=== PATIENT | male | born 1950 | race Caucasian/White ===

== ENCOUNTER 2018-12-14 16:44 | Inpatient (IN) | payer OTHER ==
[~2018-12-14] VITALS: Ht 177.8 cm; Wt 50.9 kg
--- NOTE | 2018-12-14 16:55 | NUR ---
68 Y/O MALE PRESENTS TO ED WITH NO COMPLAINTS. PER EMS REPORT CPS/EMS WAS CALLED TO THE APARTMENT. ON SCENE PT WAS HYPERTENSIVE 200s/100s. PT TAKES HTN MEDICATION, BUT DAUGHTER THINKS HE IS MISSING ONE. THEY MOVED HERE FROM [place] AND ARE TRYING TO FIND HOUSING. DAUGHTER IS POS, PER EMS. PT HAS NO COMPLAINTS AT THIS TIME. DAUGHTER WANTED PT TO COME TO ER TO GET CHECKED OUT. NO C/O N/V/D, TRAUMA, SYNCOPE, CP, SOB. PT PLACED ON ALL MONITORS.
--- NOTE | 2018-12-14 16:55 | NUR ---
COST ACCOUNTING CLERK: MIMI CERNA OF [facility] CALLED ABOUT THIS PT STATING THAT PT WAS LIVING IN UNSAFE CONDITIONS. PHONE NUMBER [phone] CELL [phone]. DAUGHTER SHASTA
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
[2018-12-14 17:50] LABS: BASOPHILS # (AUTO) 0.05 x10^3/uL (0-0.1); BASOPHILS % (AUTO) 1 % (0-1); EOSINOPHILS # (AUTO) 0.15 x10^3/uL (0-0.4); EOSINOPHILS % (AUTO) 2 % (1-7); LYMPHOCYTES # (AUTO) 1.34 x10^3/uL (1-3.4); LYMPHOCYTES % (AUTO) 19 % (22-44); MD NO; MEAN CORPUSCULAR HEMOGLOBIN 31.8 pg (27.5-34.5); MEAN CORPUSCULAR VOLUME 96.3 fL (81-97); MEAN PLATELET VOLUME 8.4 fL (7.4-10.4); MONOCYTES # (AUTO) 0.66 x10^3/uL (0.2-0.8); MONOCYTES % (AUTO) 9 % (2-9); NEUTROPHILS # (AUTO) 4.88 x10^3/uL (1.8-6.8); NEUTROPHILS % (AUTO) 69 % (42-75); PLATELET COUNT 265 x10^3/uL (130-400); RED BLOOD COUNT 4.37 x10^6/uL (4.38-5.82); RED CELL DISTRIBUTION WIDTH 16.1 % (9.4-14.8)
[2018-12-14 18:03] LABS: CHLORIDE 110 mmol/L (98-107)
[2018-12-14 18:10] LABS: ALBUMIN 3.8 g/dL (3.4-5.0); ANION GAP 7 mmol/L (5-15); CALCIUM 8.6 mg/dL (8.5-10.1); CREATININE 1.27 mg/dL (0.7-1.3)
--- NOTE | 2018-12-14 18:30 | NUR ---
LATE ENTRY FOR 1800 PT RESTING ON GURNEY WATCHING TV. NO ACUTE DISTRESS NOTED. NO C/O PAIN. NO NEEDS REQUESTED AT THIS TIME.
[2018-12-14] MEDS ORDERED: OXYBUTYNIN (18:32)
[2018-12-14] MEDS ORDERED: CARVEDILOL (18:32)
[2018-12-14] MEDS ORDERED: ASPI-515 PO (18:32)
[2018-12-14] MEDS ORDERED: ATORVASTATIN (18:32)
--- NOTE | 2018-12-14 18:59 | NUR ---
BEDSIDE REPORT TO KING SALINAS. ALL QUESTIONS ANSWERED
[2018-12-14] MEDS ORDERED: SODIUM CHLORIDE FLUSH 10ML SYR IVF PRN (19:30)
[2018-12-14] MEDS ORDERED: LABETALOL 5MG/ML, 20ML IVPush PRN (20:00)
[2018-12-14] MEDS ORDERED: ACETAMINOPHEN 325 MG TABLET PO PRN (20:00)
[2018-12-14] MEDS ORDERED: NICOTINE 14MG/24 HR PATCH.TD24 TD ONE (20:00)
[2018-12-14] MEDS ORDERED: POTASSIUM CHLORIDE 20 MEQ in SODIUM CHLORIDE 0.9% 250 ML IV ONE (20:00)
--- NOTE | 2018-12-14 20:09 | NUR ---
REPORT TO KING MARCELINO
[2018-12-14 20:30] VITALS: BP 199/96
[2018-12-14] MEDS: ENOXAPARIN 40 MG/0.4 ML SQ SCH (21:02)
[2018-12-14] MEDS: CARVEDILOL 12.5 MG TABLET PO SCH (21:02)
[2018-12-15] VITALS (8 sets, daily range): BP systolic 155–204; BP diastolic 89–102
[2018-12-15 05:26] LABS: ANION GAP 6 mmol/L (5-15); CALCIUM 8.5 mg/dL (8.5-10.1); CHLORIDE 113 mmol/L (98-107); CREATININE 1.12 mg/dL (0.7-1.3)
[2018-12-15] MEDS: CARVEDILOL 12.5 MG TABLET PO SCH ×2 (06:16→17:34)
[2018-12-15] MEDS: ASPIRIN 81 MG TABLET EC PO SCH (09:26)
[2018-12-15] MEDS: hydrALAzine 20 MG/ML, 1ML IV PRN ×2 (12:39→13:02)
[2018-12-15] MEDS ORDERED: HYDR-3342 PO (15:19)
[2018-12-15] MEDS ORDERED: CARV12.543 PO (15:19)
[2018-12-15] MEDS ORDERED: OXYB5TAB7 PO (16:30)
[2018-12-15] MEDS ORDERED: ATOR40TA PO (16:30)
[2018-12-15] MEDS: ENOXAPARIN 40 MG/0.4 ML SQ SCH (20:36)
[2018-12-16 01:28] VITALS: BP 180/100
[2018-12-16] MEDS: hydrALAzine 20 MG/ML, 1ML IV PRN (01:33)
[2018-12-16 05:41] VITALS: BP 162/99
[2018-12-16] MEDS: CARVEDILOL 12.5 MG TABLET PO SCH (05:42)
[2018-12-16 07:45] VITALS: BP 186/95
[2018-12-16] MEDS: ASPIRIN 81 MG TABLET EC PO SCH (09:26)
[2018-12-16 09:27] VITALS: BP 141/85
== END 2018-12-16 10:25 | DRG 640 ==
LOC: ED 19:26 → 3NW 19:27
PROVIDERS: ADMIT Internal Medicine; ATTEND Internal Medicine
DX: R62.7 Adult failure to thrive (principal); E43 Unspecified severe protein-calorie malnutrition; J98.11 Atelectasis; Z68.1 Body mass index [BMI] 19.9 or less, adult; E87.6 Hypokalemia; F17.210 Nicotine dependence, cigarettes, uncomplicated; I10 Essential (primary) hypertension; I69.920 Aphasia following unspecified cerebrovascular disease; R32 Unspecified urinary incontinence; Z91.14 Patient's other noncompliance with medication regimen
CPT/HCPCS: 36415; 71045; 80048; 82040; 85025; 93005; 99285; G0378; J1650; J3480; J0360; J7050